=== PATIENT | female | born 1990 | race Caucasian/White ===

== ENCOUNTER 2016-12-30 18:52 | Emergency (ER) | payer OTHER ==
[~2016-12-30] VITALS: Ht 162.6 cm; Wt 48.0 kg
[2016-12-30] MEDS ORDERED: PERTUSS(ACELL),DIPH,TET VAC/PF 0.5 ML VIAL IM ONE (20:15)
[2016-12-30 20:46] VITALS: BP 133/66
== END 2016-12-30 21:07 | disposition home or self-care (01) ==
LOC: EMS 18:54
DX: F15.10 Other stimulant abuse, uncomplicated (principal)
CPT/HCPCS: 90471; 90715; 99283

== ENCOUNTER 2017-01-24 23:02 | Emergency (ER) | payer OTHER | END 2017-01-24 23:08 | disposition left against medical advice (07) | LOC: EMS 23:03 | DX: R45.851 Suicidal ideations (principal); Z53.21 Procedure and treatment not carried out due to patient leaving prior to being seen by health care provider ==

== ENCOUNTER 2017-09-09 14:52 | Observation (INO) | payer OTHER ==
[~2017-09-09] VITALS: Ht 162.6 cm; Wt 59.9 kg
[2017-09-09 19:22] VITALS: BP 99/56
[2017-09-09 20:27] LABS: APPEARANCE,URINE CLOUDY (CLEAR); GLUCOSE, URINE (UA) NEGATIVE (NEGATIVE); KETONES,URINE NEGATIVE (NEGATIVE); LEUKOCYTE ESTERASE ,URINE MODERATE (NEGATIVE); OCCULT BLOOD,URINE LARGE (NEGATIVE); PH,URINE 7.5 (5.0-8.0); PROTEIN,URINE NEGATIVE (NEGATIVE)
[2017-09-09 20:37] LABS: ADD UA MICROSCOPIC YES
[2017-09-09 20:54] LABS: SQUAMOUS EPITHELIAL CELL,UR Many /LPF (None Seen)
== END 2017-09-09 18:40 | disposition left against medical advice (07) ==
LOC: 4S 14:52
PROVIDERS: ADMIT Obstetrics & Gynecology; ATTEND Obstetrics & Gynecology
DX: O26.852 Spotting complicating pregnancy, second trimester (principal); Z3A.20 20 weeks gestation of pregnancy
CPT/HCPCS: 36415; 76805; 81001; 86900; 87086; G0378

== ENCOUNTER 2018-12-26 09:50 | Emergency (ER) | payer OTHER ==
[~2018-12-26] VITALS: Ht 162.6 cm; Wt 65.9 kg
[2018-12-26 11:11] LABS: APPEARANCE,URINE CLOUDY (CLEAR); BILIRUBIN,URINE NEGATIVE (NEGATIVE); GLUCOSE, URINE (UA) NEGATIVE (NEGATIVE); KETONES,URINE NEGATIVE (NEGATIVE); LEUKOCYTE ESTERASE ,URINE SMALL (NEGATIVE); NITRATE,URINE NEGATIVE (NEGATIVE); OCCULT BLOOD,URINE LARGE (NEGATIVE); PROTEIN,URINE NEGATIVE (NEGATIVE); UROBILINOGEN,URINE 0.2 mg/dL (<=1.0)
[2018-12-26 11:12] LABS: BASOPHILS % (AUTO) 0.4 % (0.0-2.0); EOSINOPHILS % (AUTO) 1.6 % (1.0-6.0); HEMATOCRIT 40.3 % (36-46); HEMOGLOBIN 13.9 g/dL (12.0-16.0); LYMPHOCYTES # (AUTO) 0.7 K/uL (1.0-4.8); LYMPHOCYTES % (AUTO) 21.7 % (22.0-44.0); MEAN CORPUSCULAR HGB CONC 34.4 G/dL (31.0-37.0); MEAN CORPUSCULAR VOLUME 93 fL (80-100); MONOCYTES # (AUTO) 0.3 K/uL (0.1-1.0); MONOCYTES % (AUTO) 10.6 % (2.0-9.0); NEUTROPHILS # (AUTO) 2.1 K/uL (1.8-7.7); NEUTROPHILS % (AUTO) 65.7 % (40.0-70.0); PLATELET COUNT (AUTO) 189 K/uL (150-450); RED BLOOD CELL COUNT(AUTO) 4.34 MIL/uL (4.00-5.20); RED CELL DISTRIBUTION WIDTH 12.6 % (11.5-14.5)
[2018-12-26 11:26] LABS: ANION GAP 10 mmol/L (8-16); CALCIUM, TOTAL 9.2 mg/dL (8.8-10.5); CARBON DIOXIDE 24 mmol/L (22-29); CHLORIDE 102 mmol/L (98-107); CREATININE 0.61 mg/dL (0.60-1.30); GLOMERULAR FILTR. RATE CALC > 60 mL/min (>60); GLUCOSE,RANDOM 105 mg/dL (70-110); POTASSIUM 3.9 mmol/L (3.5-5.1); SODIUM SERUM 136 mmol/L (136-145); UREA NITROGEN, BLOOD 7 mg/dL (7-18)
[2018-12-26 11:42] LABS: BACTERIA,URINE Moderate /HPF (None Seen); RBC,URINE 0-2 /HPF (0-2); SQUAMOUS EPITHELIAL CELL,UR Moderate /LPF (None Seen)
[2018-12-26 11:52] LABS: ALANINE AMINOTRANSFERASE 50 U/L (12-78); ALBUMIN 3.5 g/dL (3.4-5.0); ALKALINE PHOSPHATASE 85 U/L (46-116); ASPARTATE AMINOTRANSFERASE 49 U/L (15-37); BILIRUBIN,TOTAL 0.4 mg/dL (0.1-1.0); HCG,QUANTITATIVE 10714 mIU/mL (0-6); TOTAL PROTEIN, SERUM 7.4 g/dL (6.4-8.2)
[2018-12-26 13:09] VITALS: BP 127/71
== END 2018-12-26 13:13 | disposition home or self-care (01) ==
LOC: EMS 09:51
DX: O46.8X1 Other antepartum hemorrhage, first trimester (principal); F15.90 Other stimulant use, unspecified, uncomplicated; Z3A.01 Less than 8 weeks gestation of pregnancy
CPT/HCPCS: 76801; 76817; 86901; 87086

== ENCOUNTER 2019-05-06 08:14 | Emergency (ER) | payer OTHER ==
[~2019-05-06] VITALS: Ht 162.6 cm; Wt 60.9 kg
[2019-05-06] MEDS ORDERED: PRENATAL MEDS PO (08:26)
[2019-05-06] MEDS ORDERED: PREN1TAB80 PO (08:27)
[2019-05-06] MEDS ORDERED: ONDANSETRON HCL 4 MG/2 ML VIAL IVP ONE (08:30)
[2019-05-06] MEDS ORDERED: SODIUM CHLORIDE 0.9% 1,000 ML IV ONE (08:30)
[2019-05-06 08:52] LABS: BASOPHILS % (AUTO) 0.5 % (0.0-2.0); EOSINOPHILS % (AUTO) 0.2 % (1.0-6.0); HEMATOCRIT 39.4 % (36-46); HEMOGLOBIN 13.1 g/dL (12.0-16.0); LYMPHOCYTES # (AUTO) 0.8 K/uL (1.0-4.8); LYMPHOCYTES % (AUTO) 9.5 % (22.0-44.0); MEAN CORPUSCULAR HEMOGLOBIN 30.3 pg (26.0-34.0); MEAN CORPUSCULAR HGB CONC 33.1 G/dL (31.0-37.0); MEAN CORPUSCULAR VOLUME 91 fL (80-100); MONOCYTES # (AUTO) 0.4 K/uL (0.1-1.0); MONOCYTES % (AUTO) 5.5 % (2.0-9.0); NEUTROPHILS # (AUTO) 6.8 K/uL (1.8-7.7); NEUTROPHILS % (AUTO) 84.3 % (40.0-70.0); PLATELET COUNT (AUTO) 228 K/uL (150-450); RED BLOOD CELL COUNT(AUTO) 4.31 MIL/uL (4.00-5.20); RED CELL DISTRIBUTION WIDTH 12.9 % (11.5-14.5)
[2019-05-06 09:04] LABS: ANION GAP 11 mmol/L (8-16); CALCIUM, TOTAL 9.3 mg/dL (8.8-10.5); CARBON DIOXIDE 25 mmol/L (22-29); CHLORIDE 102 mmol/L (98-107); GLOMERULAR FILTR. RATE CALC > 60 mL/min (>60); GLUCOSE,RANDOM 104 mg/dL (70-110); POTASSIUM 3.9 mmol/L (3.5-5.1); SODIUM SERUM 138 mmol/L (136-145); UREA NITROGEN, BLOOD 9 mg/dL (7-18)
[2019-05-06 09:33] LABS: ALANINE AMINOTRANSFERASE 18 U/L (12-78); ALBUMIN 2.9 g/dL (3.4-5.0); ALKALINE PHOSPHATASE 54 U/L (46-116); ASPARTATE AMINOTRANSFERASE 16 U/L (15-37); BILIRUBIN,TOTAL 0.2 mg/dL (0.1-1.0); HCG,QUANTITATIVE 348572 mIU/mL (0-6); LIPASE 83 U/L (73-393); TOTAL PROTEIN, SERUM 7.2 g/dL (6.4-8.2)
[2019-05-06 09:47] LABS: AMPHET/METH SCREEN,URINE NEGATIVE (NEGATIVE); BARBITURATE SCREEN, URINE NEGATIVE (NEGATIVE); BENZODIAZEPINES SCREEN,URINE NEGATIVE (NEGATIVE); CANNABINOID SCREEN,URINE NEGATIVE (NEGATIVE); COCAINE SCREEN,URINE NEGATIVE (NEGATIVE); METHADONE SCREEN, URINE NEGATIVE (NEGATIVE); OPIATE SCREEN,URINE NEGATIVE (NEGATIVE)
[2019-05-06 09:50] LABS: PHENCYCLIDINE SCREEN,URINE NEGATIVE (NEGATIVE)
[2019-05-06 09:55] LABS: APPEARANCE,URINE TURBID (CLEAR); BILIRUBIN,URINE NEGATIVE (NEGATIVE); GLUCOSE, URINE (UA) NEGATIVE (NEGATIVE); KETONES,URINE NEGATIVE (NEGATIVE); LEUKOCYTE ESTERASE ,URINE LARGE (NEGATIVE); NITRATE,URINE NEGATIVE (NEGATIVE); OCCULT BLOOD,URINE TRACE (NEGATIVE); PROTEIN,URINE NEGATIVE (NEGATIVE); UROBILINOGEN,URINE 0.2 mg/dL (<=1.0)
[2019-05-06 09:59] LABS: BACTERIA,URINE Moderate /HPF (None Seen); CALCIUM OXALATE CRYSTALS,UR Many /LPF (None Seen); SQUAMOUS EPITHELIAL CELL,UR Many /LPF (None Seen)
[2019-05-06 13:13] VITALS: BP 130/76
== END 2019-05-06 13:17 | disposition home or self-care (01) ==
LOC: EMS 08:16
DX: O21.9 Vomiting of pregnancy, unspecified (principal); O26.892 Other specified pregnancy related conditions, second trimester; R19.7 Diarrhea, unspecified; F15.90 Other stimulant use, unspecified, uncomplicated; Z3A.17 17 weeks gestation of pregnancy
CPT/HCPCS: 36415; 80053; 80307; 81001; 81002; 83690; 84702; 85025; 87077; 87086; 87186; 96361; 96374; 99283; J2405; J7030

== ENCOUNTER 2019-05-15 09:15 | Emergency (ER) | payer OTHER ==
[~2019-05-15] VITALS: Ht 162.6 cm; Wt 61.0 kg
[~2019-05-15 09:15] MED LIST: PREN1TAB80 PO
[2019-05-15] MEDS ORDERED: ONDA4 PO (09:29)
[2019-05-15 09:30] VITALS: BP 115/75
== END 2019-05-15 09:20 | disposition left against medical advice (07) ==
LOC: EMS 09:16
DX: T63.301A Toxic effect of unspecified spider venom, accidental (unintentional), initial encounter (principal); F19.90 Other psychoactive substance use, unspecified, uncomplicated; Z53.21 Procedure and treatment not carried out due to patient leaving prior to being seen by health care provider; Y92.89 Other specified places as the place of occurrence of the external cause

== ENCOUNTER 2025-09-16 21:49 | Inpatient (IN) | payer MEDICAID, OTHER ==
[~2025-09-16] VITALS: Ht 162.6 cm; Wt 62.6 kg
[~2025-09-16 21:49] MED LIST changes: +ONDA-104 PO
[2025-09-16] MEDS: LORazepam 2 MG/ML VIAL IM ONE (22:04)
[2025-09-16 22:19] LABS: COVID AG,FIA SOURCE NASAL SWAB
[2025-09-16 22:37] LABS: SARS-COV2 (COVID) ANTIGEN,FIA Negative (Negative)
[2025-09-16 22:57] LABS: PLATELET COUNT (AUTO) 157 K/uL (150-450); RED BLOOD CELL COUNT(AUTO) 4.74 MIL/uL (4.00-5.20); RED CELL DISTRIBUTION WIDTH 12.4 % (11.5-14.5); WHITE BLOOD COUNT (AUTO) 18.0 K/uL (4.5-11.0)
[2025-09-16 23:03] LABS: CALCIUM, TOTAL 9.0 mg/dL (8.8-10.5); CREATININE 1.4 mg/dL (0.60-1.30); GLOMERULAR FILTR. RATE CALC 43.0 mL/min (>60); GLUCOSE,RANDOM 361.0 mg/dL (70-110); SODIUM SERUM 139.0 mmol/L (136-145); UREA NITROGEN, BLOOD 7.0 mg/dL (7-18)
[2025-09-16 23:16] LABS: PLATELET MORPHOLOGY COMMENT GIANT PLTS PRESENT; RBC MORPHOLOGY COMMENT NORMAL RBC MORPH
[2025-09-16] MEDS: POTASSIUM CHLORIDE 20 MEQ ER TABLET PO ONE (23:27)
[2025-09-17] MEDS: INSULIN REGULAR, HUMAN 100 UNITS/ML SQ ONE (00:15)
[2025-09-17] MEDS: POTASSIUM CHL 10 MEQ/WATER 50 ML IV SCH (04:25)
[2025-09-17] MEDS: POTASSIUM CHLORIDE 20 MEQ ER TABLET PO ONE (10:45)
[2025-09-17 10:46] VITALS: O2SAT 97
[2025-09-17 12:50] VITALS: BP 105/75; PULSE 89; RESP 18; TEMP 97.8; O2SAT 98
[2025-09-17] MEDS ORDERED: GLUCAGON,HUMAN RECOMBINANT 1 MG VIAL IM PRN (15:45)
[2025-09-17] MEDS: INSULIN LISPRO 100 UNITS/ML SQ PRN (17:00)
[2025-09-17 17:21] LABS: GLUCOMETER DEV NAME(LOC) BV3S.2; GLUCOSE,POINT OF CARE 151 MG/DL (70-110)
[2025-09-17] MEDS ORDERED: INFLUENZA VIRUS VACCINE TVS (6MO+) 2025-26/PF 45 MCG/0.5 ML SYRINGE IM. ONE (17:30)
[2025-09-17 20:11] VITALS: BP 115/69; PULSE 82; RESP 17; TEMP 98.2; O2SAT 100
[2025-09-17 21:35] LABS: GLUCOMETER DEV NAME(LOC) BV3S.2; GLUCOSE,POINT OF CARE 182 MG/DL (70-110)
[2025-09-18] MEDS ORDERED: NICOTINE 14 MG/24 HOUR PATCH TD PRN (06:00)
[2025-09-18] MEDS ORDERED: LOPERAMIDE HCL 2 MG CAPSULE PO PRN (06:00)
[2025-09-18] MEDS ORDERED: ALBUTEROL SULFATE HFA 90 MCG/PUFF 8 GM INHALER IH PRN (06:00)
[2025-09-18] MEDS ORDERED: PETROLATUM,WHITE 28 GM JELLY TP PRN (06:00)
[2025-09-18] MEDS ORDERED: ONDANSETRON 4 MG TABLET PO PRN (06:00)
[2025-09-18] MEDS ORDERED: MAG HYDROX/ALUMINUM HYD/SIMETH ES 30 ML SUSPENSION UDCUP PO PRN (06:00)
[2025-09-18] MEDS ORDERED: GuaiFENesin/D-METHORPHAN [SUGAR-FREE] 200-20MG/10 ML SYRUP UDCUP PO PRN (06:00)
[2025-09-18] MEDS: POTASSIUM CHLORIDE 20 MEQ ER TABLET PO ONE (06:11)
[2025-09-18 06:15] LABS: GLUCOMETER DEV NAME(LOC) BV3S.2; GLUCOSE,POINT OF CARE 167 MG/DL (70-110)
[2025-09-18 08:13] VITALS: RESP 16
[2025-09-18] MEDS: LURASIDONE HCL 40 MG TABLET PO SCH (10:56)
[2025-09-18 16:51] LABS: GLUCOMETER DEV NAME(LOC) BV3S.2; GLUCOSE,POINT OF CARE 147 MG/DL (70-110)
[2025-09-18 20:50] VITALS: BP 127/83; PULSE 97; RESP 18; TEMP 98.6; O2SAT 99
[2025-09-19 01:31] LABS: GLUCOMETER DEV NAME(LOC) BV3S.2; GLUCOSE,POINT OF CARE 206 MG/DL (70-110)
[2025-09-19 06:51] LABS: GLUCOMETER DEV NAME(LOC) BV3S.2; GLUCOSE,POINT OF CARE 226 MG/DL (70-110)
[2025-09-19 08:06] VITALS: RESP 16
[2025-09-19 11:25] LABS: GLUCOMETER DEV NAME(LOC) BV3S.2; GLUCOSE,POINT OF CARE 229 MG/DL (70-110)
[2025-09-19 16:41] LABS: GLUCOMETER DEV NAME(LOC) BV3S.2; GLUCOSE,POINT OF CARE 210 MG/DL (70-110)
[2025-09-19 20:11] VITALS: BP 116/86; PULSE 80; RESP 16; TEMP 97.5; O2SAT 100
[2025-09-19 20:35] LABS: GLUCOMETER DEV NAME(LOC) BV3S.2; GLUCOSE,POINT OF CARE 183 MG/DL (70-110)
[2025-09-20 06:41] LABS: GLUCOMETER DEV NAME(LOC) BV3S.2; GLUCOSE,POINT OF CARE 163 MG/DL (70-110)
[2025-09-20 08:43] VITALS: BP 128/79; PULSE 98; RESP 18; TEMP 97.3; O2SAT 99
[2025-09-20 11:50] LABS: GLUCOMETER DEV NAME(LOC) BV3S.2; GLUCOSE,POINT OF CARE 213 MG/DL (70-110)
[2025-09-20 20:02] VITALS: BP 125/90; PULSE 107; RESP 17; TEMP 97.5; O2SAT 97
[2025-09-20 20:46] LABS: GLUCOMETER DEV NAME(LOC) BV3S.2; GLUCOSE,POINT OF CARE 223 MG/DL (70-110)
[2025-09-20 20:46] LABS: GLUCOMETER DEV NAME(LOC) BV3S.2; GLUCOSE,POINT OF CARE 281 MG/DL (70-110)
[2025-09-21 06:31] LABS: GLUCOMETER DEV NAME(LOC) BV3S.2; GLUCOSE,POINT OF CARE 242 MG/DL (70-110)
[2025-09-21 08:24] VITALS: RESP 16
[2025-09-21 11:35] LABS: GLUCOMETER DEV NAME(LOC) BV3N.2; GLUCOSE,POINT OF CARE 350 MG/DL (70-110)
[2025-09-21 16:25] LABS: GLUCOMETER DEV NAME(LOC) BV3N.2; GLUCOSE,POINT OF CARE 183 MG/DL (70-110)
[2025-09-21] MEDS ORDERED: LORazepam 2 MG/ML VIAL ONE (18:42)
[2025-09-21] MEDS: LORazepam 2 MG/ML VIAL IM ONE (18:58)
[2025-09-21 20:00] VITALS: RESP 17
[2025-09-21 22:15] LABS: GLUCOMETER DEV NAME(LOC) BV3S.2; GLUCOSE,POINT OF CARE 205 MG/DL (70-110)
[2025-09-22 06:30] LABS: GLUCOMETER DEV NAME(LOC) BV3S.2; GLUCOSE,POINT OF CARE 166 MG/DL (70-110)
[2025-09-22 08:09] VITALS: BP 159/90; PULSE 103; RESP 17; TEMP 97.8; O2SAT 100
[2025-09-22] MEDS ORDERED: MULTIVITAMINS WITH MINERALS, THERAPEUTIC TABLET PO SCH (09:00)
[2025-09-22] MEDS ORDERED: FOLIC ACID 1 MG TABLET PO SCH (09:00)
[2025-09-22] MEDS ORDERED: THIAMINE 100 MG TABLET PO SCH (09:00)
[2025-09-22 09:07] LABS: APPEARANCE,URINE HAZY (CLEAR); GLUCOSE, URINE (UA) >=1000 mg/dL (NEGATIVE); LEUKOCYTE ESTERASE ,URINE LARGE (NEGATIVE); NITRATE,URINE NEGATIVE (NEGATIVE); OCCULT BLOOD,URINE NEGATIVE (NEGATIVE); SPECIFIC GRAVITIY, URINE 1.010 (1.003-1.030)
[2025-09-22 09:49] LABS: SQUAMOUS EPITHELIAL CELL,UR Moderate /LPF (None Seen)
[2025-09-22 11:55] VITALS: PULSE 60; O2SAT 99
[2025-09-22 11:55] LABS: GLUCOMETER DEV NAME(LOC) BV3S.2; GLUCOSE,POINT OF CARE 254 MG/DL (70-110)
[2025-09-22] MEDS: CEPHALEXIN MONOHYDRATE 500 MG CAPSULE PO SCH (12:03)
[2025-09-22 17:06] LABS: GLUCOMETER DEV NAME(LOC) BV3S.2; GLUCOSE,POINT OF CARE 228 MG/DL (70-110)
[2025-09-22 20:16] VITALS: BP 116/87; PULSE 83; RESP 17; TEMP 97.2; O2SAT 99
[2025-09-23 21:45] LABS: GLUCOMETER DEV NAME(LOC) BV3S.2; GLUCOSE,POINT OF CARE 269 MG/DL (70-110)
[2025-09-24 08:10] VITALS: RESP 18
[2025-09-24 08:11] VITALS: RESP 17
[2025-09-24] MEDS ORDERED: LORazepam 2 MG/ML VIAL ONE (11:18)
[2025-09-24] MEDS: LORazepam 2 MG/ML VIAL IM ONE (11:29)
[2025-09-24 20:20] VITALS: BP 121/68; PULSE 81; RESP 20; TEMP 98.1; O2SAT 96
[2025-09-25 08:17] VITALS: BP 128/73; PULSE 98; RESP 18; TEMP 97.4; O2SAT 99
[2025-09-25 08:54] LABS: PLATELET COUNT (AUTO) 193 K/uL (150-450); RED BLOOD CELL COUNT(AUTO) 4.43 MIL/uL (4.00-5.20); RED CELL DISTRIBUTION WIDTH 12.6 % (11.5-14.5); WHITE BLOOD COUNT (AUTO) 6.4 K/uL (4.5-11.0)
[2025-09-25 13:58] VITALS: RESP 16
[2025-09-25] MEDS: ACETAMINOPHEN 325 MG TABLET PO PRN (13:58)
[2025-09-25 14:58] VITALS: RESP 16
[2025-09-25 18:00] LABS: GLUCOMETER DEV NAME(LOC) BV3N.2; GLUCOSE,POINT OF CARE 253 MG/DL (70-110)
[2025-09-25 18:01] LABS: GLUCOMETER DEV NAME(LOC) BV3N.2; GLUCOSE,POINT OF CARE 323 MG/DL (70-110)
[2025-09-25 21:35] VITALS: BP 133/94; PULSE 100; RESP 18; TEMP 97.3; O2SAT 98
[2025-09-26 07:05] LABS: GLUCOMETER DEV NAME(LOC) BV3S.2; GLUCOSE,POINT OF CARE 322 MG/DL (70-110)
[2025-09-26 08:23] VITALS: RESP 18
[2025-09-26 16:34] VITALS: RESP 16
[2025-09-26 17:34] VITALS: RESP 16
[2025-09-26 21:25] LABS: GLUCOMETER DEV NAME(LOC) BV3S.2; GLUCOSE,POINT OF CARE 300 MG/DL (70-110)
[2025-09-26 23:18] VITALS: RESP 18
[2025-09-27 06:45] LABS: GLUCOMETER DEV NAME(LOC) BV3S.2; GLUCOSE,POINT OF CARE 212 MG/DL (70-110)
[2025-09-27 08:18] VITALS: BP 136/78; PULSE 100; RESP 16; TEMP 97.9; O2SAT 97
[2025-09-27 09:00] VITALS: RESP 16
[2025-09-27 10:01] VITALS: RESP 16
[2025-09-27 16:36] LABS: GLUCOMETER DEV NAME(LOC) BV3S.2; GLUCOSE,POINT OF CARE 352 MG/DL (70-110)
[2025-09-27 20:30] VITALS: RESP 16
[2025-09-27 20:30] LABS: GLUCOMETER DEV NAME(LOC) BV3S.2; GLUCOSE,POINT OF CARE 263 MG/DL (70-110)
[2025-09-27] MEDS ORDERED: INSULIN LISPRO 100 UNITS/ML SQ PRN (20:45)
[2025-09-27] MEDS ORDERED: DEXTROSE 50%-WATER 25 GM/50 ML SYRINGE IVP PRN (20:45)
[2025-09-27] MEDS: ZOLPIDEM TARTRATE 10 MG TABLET PO PRN (22:09)
[2025-09-28] MEDS: IBUPROFEN 400 MG TABLET PO PRN (05:24)
[2025-09-28 05:25] VITALS: RESP 17
[2025-09-28 06:45] VITALS: RESP 17
[2025-09-28 08:29] VITALS: RESP 16
[2025-09-28 20:21] VITALS: BP 121/76; PULSE 97; RESP 18; TEMP 99.2; O2SAT 97
[2025-09-29 06:16] LABS: GLUCOMETER DEV NAME(LOC) BV3S.2; GLUCOSE,POINT OF CARE 221 MG/DL (70-110)
[2025-09-29 08:13] VITALS: BP 122/77; PULSE 88; RESP 18; TEMP 97.9; O2SAT 99
[2025-09-29 12:15] LABS: GLUCOMETER DEV NAME(LOC) BV3S.2; GLUCOSE,POINT OF CARE 355 MG/DL (70-110)
[2025-09-29 16:55] LABS: GLUCOMETER DEV NAME(LOC) BV3S.2; GLUCOSE,POINT OF CARE 240 MG/DL (70-110)
[2025-09-29 20:15] VITALS: BP 118/65; PULSE 67; RESP 16; TEMP 97.4; O2SAT 96
[2025-09-30 08:20] VITALS: BP 125/78; PULSE 100; RESP 16; TEMP 97.6; O2SAT 97
[2025-09-30 17:16] LABS: GLUCOMETER DEV NAME(LOC) BV3S.2; GLUCOSE,POINT OF CARE 250 MG/DL (70-110)
[2025-09-30 20:21] LABS: GLUCOMETER DEV NAME(LOC) BV3S.2; GLUCOSE,POINT OF CARE 240 MG/DL (70-110)
[2025-09-30 20:33] VITALS: BP_SYST 103; BP_SYST 114; BP_DIAS 71; BP_DIAS 80; PULSE 101; PULSE 94; RESP 16; TEMP 97.2; O2SAT 100; O2SAT 97
[2025-10-01 08:30] VITALS: BP 134/79; PULSE 98; RESP 16; TEMP 97.3; O2SAT 97
[2025-10-01 11:56] LABS: GLUCOMETER DEV NAME(LOC) BV3S.2; GLUCOSE,POINT OF CARE 293 MG/DL (70-110)
[2025-10-01 16:45] LABS: GLUCOMETER DEV NAME(LOC) BV3S.2; GLUCOSE,POINT OF CARE 341 MG/DL (70-110)
[2025-10-01 20:49] VITALS: RESP 16
[2025-10-01 20:50] LABS: GLUCOMETER DEV NAME(LOC) BV3S.2; GLUCOSE,POINT OF CARE 221 MG/DL (70-110)
[2025-10-02] MEDS ORDERED: LORazepam 2 MG/ML VIAL ONE (02:39)
[2025-10-02] MEDS: LORazepam 2 MG/ML VIAL IM ONE ×2 (03:05→11:43)
[2025-10-02 08:16] VITALS: RESP 18
[2025-10-02 11:21] LABS: GLUCOMETER DEV NAME(LOC) BV3S.2; GLUCOSE,POINT OF CARE 319 MG/DL (70-110)
[2025-10-02 20:13] VITALS: BP 115/69; PULSE 86; RESP 17; TEMP 98.2; O2SAT 98
[2025-10-02 20:51] LABS: GLUCOMETER DEV NAME(LOC) BV3S.2; GLUCOSE,POINT OF CARE 341 MG/DL (70-110)
[2025-10-02 20:51] LABS: GLUCOMETER DEV NAME(LOC) BV3S.2; GLUCOSE,POINT OF CARE 380 MG/DL (70-110)
[2025-10-02 23:11] VITALS: RESP 17
[2025-10-03 08:18] VITALS: BP 132/73; PULSE 86; RESP 16; TEMP 97
[2025-10-03 11:17] LABS: GLUCOMETER DEV NAME(LOC) BV3S.2; GLUCOSE,POINT OF CARE 387 MG/DL (70-110)
[2025-10-03 16:36] LABS: GLUCOMETER DEV NAME(LOC) BV3S.2; GLUCOSE,POINT OF CARE 369 MG/DL (70-110)
[2025-10-03] MEDS ORDERED: LORazepam 2 MG/ML VIAL ONE (17:41)
[2025-10-03] MEDS: LORazepam 2 MG/ML VIAL IM ONE (18:10)
[2025-10-03 20:26] VITALS: BP 122/75; PULSE 85; RESP 16; TEMP 98; O2SAT 98
[2025-10-04 08:12] VITALS: BP 127/68; PULSE 98; RESP 17; TEMP 97.1; O2SAT 100
[2025-10-04 10:01] LABS: CALCIUM, TOTAL 8.9 mg/dL (8.8-10.5); CREATININE 0.82 mg/dL (0.60-1.30); GLOMERULAR FILTR. RATE CALC > 60 mL/min (>60); GLUCOSE,RANDOM 384 mg/dL (70-110); SODIUM SERUM 132 mmol/L (136-145); UREA NITROGEN, BLOOD 14 mg/dL (7-18)
[2025-10-04 20:50] VITALS: BP 122/75; PULSE 95; RESP 18; TEMP 97.2; O2SAT 96
[2025-10-05 06:35] LABS: GLUCOMETER DEV NAME(LOC) BV3S.2; GLUCOSE,POINT OF CARE 268 MG/DL (70-110)
[2025-10-05 08:20] VITALS: BP 148/85; PULSE 68; RESP 17; TEMP 97.1; O2SAT 98
[2025-10-05] MEDS: LURASIDONE HCL 60 MG TABLET PO SCH (08:24)
[2025-10-05] MEDS: MAGNESIUM HYDROXIDE SUSPENSION 30 ML UDCUP PO PRN (15:01)
[2025-10-05] MEDS: DOCUSATE SODIUM 100 MG CAPSULE PO PRN (17:40)
[2025-10-05 20:19] VITALS: BP 131/80; PULSE 89; RESP 17; TEMP 97.2; O2SAT 98
[2025-10-06 08:18] VITALS: BP 124/75; PULSE 97; RESP 18; TEMP 97.6; O2SAT 96
[2025-10-06 12:50] LABS: GLUCOMETER DEV NAME(LOC) BV3S.2; GLUCOSE,POINT OF CARE 230 MG/DL (70-110)
[2025-10-06] MEDS ORDERED: LURA60TA PO (16:33)
[2025-10-06] MEDS ORDERED: METF-1211 PO (16:35)
== END 2025-10-06 17:30 | disposition left against medical advice (07) | DRG 761 ==
LOC: EMS 21:49 → B3A 09-17 02:38
PROVIDERS: ADMIT Psychiatry & Neurology Child & Adolescent Psychiatry; ATTEND Psychiatry & Neurology Child & Adolescent Psychiatry
PROC: GZHZZZZ Group Psychotherapy (ICD-10-PCS; principal; 2025-09-17)
PROC: GZ58ZZZ Individual Psychotherapy, Cognitive-Behavioral (ICD-10-PCS; 2025-09-17)
PROC: GZ56ZZZ Individual Psychotherapy, Supportive (ICD-10-PCS; 2025-09-17)
DX: F25.1 Schizoaffective disorder, depressive type (principal); D72.829 Elevated white blood cell count, unspecified; E87.6 Hypokalemia; E11.65 Type 2 diabetes mellitus with hyperglycemia; F15.90 Other stimulant use, unspecified, uncomplicated; I10 Essential (primary) hypertension; Z53.20 Procedure and treatment not carried out because of patient's decision for unspecified reasons; Z87.59 Personal history of other complications of pregnancy, childbirth and the puerperium
CPT/HCPCS: 80048; 81001; 82962; 83036; 84132; 84703; 85025; 87077; 87086; 87186; 90686; G0480; J1200; J1630; J1815; J2060; J3230; J3480